=== PATIENT | male | born 1965 | race Caucasian/White ===

== ENCOUNTER → 2023-08-27 12:40 | Outpatient (REF) | payer BC, SELFPAY | LOC: RCS 12:40 | PROVIDERS: ATTENDING PHYSICIAN Family Medicine | DX: R07.9 Chest pain, unspecified (principal); R94.31 Abnormal electrocardiogram [ECG] [EKG] | CPT/HCPCS: 93017; 93306 ==

== ENCOUNTER → 2024-01-30 11:28 | Outpatient (REF) | payer BC, SELFPAY | LOC: RAD 11:28 | PROVIDERS: ATTENDING PHYSICIAN Physician Assistant | DX: R05.1 Acute cough (principal) | CPT/HCPCS: 71046 ==